=== PATIENT | male | born 1945 | race American Indian/Alaskan Native ===

== ENCOUNTER 2016-09-18 08:57 | Outpatient (CLI) | payer MEDICARE ==
--- NOTE | 2016-09-18 10:20 | Nuclear Medicine Report ---
LUNG SCAN, VENTILATION AND PERFUSION: History: Pulmonary embolus, left-sided pain. Technique: 5mci of Tc99m MAA was infused for the perfusion images. 15mci XE 133 gas was inhaled for the ventilatory images. Correlation is made with a chest x-ray dated none. Findings: Inhalation of Xenon gas demonstrates a normal distribution of the activity throughout both lungs. The wash out phases show no focal retention of activity. After injection of Technetium 99m macroaggregated albumin gamma camera imaging of the lungs in multiple projections demonstrates normal pulmonary contours with a homogeneous distribution of activity. No focal areas of perfusion deficiency are identified. IMPRESSION: Low probability for pulmonary embolus.
== END 2016-09-18 08:58 | disposition home or self-care (01) ==
LOC: NM 08:57
PROVIDERS: ATTEND Internal Medicine
DX: Z86.711 Personal history of pulmonary embolism (principal)
CPT/HCPCS: 78582; A9540; A9558

== ENCOUNTER 2022-05-10 14:25 | Emergency (ER) | payer OTHER, MEDICARE ==
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
[2022-05-11 00:50] VITALS: BP 136/85
== END 2022-05-11 00:25 | disposition home or self-care (01) ==
LOC: ED 14:25
DX: S09.90XA Unspecified injury of head, initial encounter (principal); V89.2XXA Person injured in unspecified motor-vehicle accident, traffic, initial encounter; Y93.89 Activity, other specified; Y92.89 Other specified places as the place of occurrence of the external cause; Y99.8 Other external cause status; M54.9 Dorsalgia, unspecified
CPT/HCPCS: 70450; 72040; 72070; 72100; 99284